=== PATIENT | male | born 1965 | race Caucasian/White ===

== ENCOUNTER → 2020-09-27 | Day surgery (SDC) | payer OTHER ==
[~2020-09-27] MED LIST: AMOXICILLIN500 MG PO; ATORVASTATIN CA10 MG PO; CALTRATE 600 +1 EACH PO; CENTRUM SILVER1 EAC5 PO; ROBAXIN500 MG PO; VOLTAREN **OUT50 MG PO; ZETIA10 MG PO
[2020-09-27 12:59] LABS: BASOPHIL 0.3 % (0-2); EOSINOPHIL 1.8 % (0-5); HCT 45.4 % (42.0-52.0); HGB 15.8 g/dl (13.2-18.0); LYMPHOCYTE 20.7 % (15-48); MCHC 34.8 g/dL (32.0-36.0); MCV 89.2 fL (78.0-100.0); MONOCYTE 5.6 % (0-12); MPV 10.1 fL (6.0-9.5); NRBC 0; PLT 286 K/uL (150-400); RBC 5.09 M/uL (4.70-6.00); RDW 12.5 % (11.5-14.0)
== END | disposition home or self-care (01) ==
LOC: FAS 09:40
PROVIDERS: Oral & Maxillofacial Surgery
DX: K09.0 Developmental odontogenic cysts (principal); K01.1 Impacted teeth; K04.7 Periapical abscess without sinus; K03.5 Ankylosis of teeth; M19.90 Unspecified osteoarthritis, unspecified site; E78.00 Pure hypercholesterolemia, unspecified; G47.30 Sleep apnea, unspecified; F17.210 Nicotine dependence, cigarettes, uncomplicated; E78.5 Hyperlipidemia, unspecified; Z99.89 Dependence on other enabling machines and devices
CPT/HCPCS: D7140; D7210; 36415; 71045; 85025; 93005; J1100; J1170; J1885; J2250; J2405; J2704; J3010; J7120